=== PATIENT | female | born 2000 | race Two or more races ===

== ENCOUNTER 2019-04-23 03:37 | Emergency (ER) | payer SELFPAY ==
[~2019-04-23] VITALS: Ht 165.1 cm; Wt 105.7 kg
[2019-04-23 03:48] VITALS: BP 140/80
--- NOTE | 2019-04-23 03:48 | NUR ---
ED Nurse Note: PT WALKED IN TO ED FOR C/O LEFT SIDED HEADACHE X 7 DAYS. PT REPORTS BLURRY VISSION TO LEFT EYE.
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
--- NOTE | 2019-04-23 06:02 | NUR ---
ED Nurse Note: report given to robert elkins, endorsed care
--- NOTE | 2019-04-23 06:30 | NUR ---
ED Nurse Note: Received report from TRACEY Lambert patient able to ambulate and has made multiple trips to the bathroom, walks with a steady gait.
--- NOTE | 2019-04-23 07:05 | NUR ---
Eileen silver in ED - 04/23/19 at 0716 by [facility] HAND-OFF: Report given to TRACEY Chan.
--- NOTE | 2019-04-23 07:15 | NUR ---
HAND-OFF: Report given to TRACEY Palmer.
[2019-04-23 08:10] VITALS: BP 137/78
[2019-04-23 08:20] VITALS: BP 137/78
--- NOTE | 2019-04-23 08:20 | NUR ---
ER DISCHARGE NOTE: Patient is cleared to be discharged per ERMD, pt is aox4, on room air, with stable vital signs. pt was given dc instructions, pt was able to verbalize understanding, pt is able to ambulate with steady gait. pt took all belongings.
--- NOTE | 2019-04-23 08:23 | Emergency Room Report ---
Physical Exam Vital Signs Date Time Temp Pulse Resp B/P (MAP) Pulse Ox O2 Delivery O2 Flow Rate FiO2 04/23/19 03:42 98.2 82 16 139/84 (102) 99 Room Air Medical Decision Making Diagnostic Impression: Primary Impression: Head injury Additional Impression: Facial contusion ER Course No evidence of acute traumatic injury on CT scans of the head or face. She is well-appearing will be discharged home to follow-up with her PMD. Tylenol Motrin as needed for pain and swelling. Discussed reasons to return to the emergency department. She understands and agrees with this treatment plan. CT/MRI/US Diagnostic Results CT/MRI/US Diagnostic Results : Impression Preliminary Findings Only See Final Report For Complete Findings CT HEAD: No comparison study available at the time of dictation. No acute hemorrhage, mass effect or midline shift. CT FACIAL: Portion of the anterior facial bone excluded from the imaging field of view. Study is centered on the visualized upper cervical spine. No acute bony abnormality in the visualized portion of the facial bone. Repeat facial CT to include the anterior portion of the facial bones could be obtained as clinically indicated. Visualized portion of the nasal bone on the head CT appear grossly unremarkable. Probable small intraparotid lymph nodes, reactive. No retrobulbar abnormality. Radiologist: Jessica Topete M.D. Study ready at 07:54 and initial results transmitted at 08:04 Last Vital Signs Date Time Temp Pulse Resp B/P (MAP) Pulse Ox O2 Delivery O2 Flow Rate FiO2 04/23/19 03:48 98.2 89 16 140/80 99 Room Air Disposition: HOME, SELF-CARE Condition: Stable Referrals: Vincent Jones. [facility] Patient Instructions: Head Injury, Adult Additional Instructions: Follow-up with your primary doctor or 1 of the clinics listed here in your discharge paperwork. Use Tylenol and Motrin as needed for headaches. Return with any new or worsening symptoms. Ray Hogan MD Apr 23, 2019 08:23
--- NOTE | 2019-04-23 08:26 | Diagnostic Imaging Report ---
Indications: Left-sided headache for one week duration Technique: Spiral acquisitions obtained through the brain. Angled axial and coronal 5 x 5 mm slices were reconstructed. Total dose length product 1912 mGycm. CTDI vol(s) 84 mGy. Dose reduction achieved using automated exposure control Comparison: None. Findings: No acute intracranial hemorrhage or edema. No mass effect nor midline shift. Normal haney-white differentiation. Intact calvarium. Visualized orbits and sinuses are unremarkable. The mastoids are clear. The calvarium is intact Impression: Negative This agrees with the preliminary interpretation provided overnight by [facility]. The CT scanner at [facility] is accredited by the [employer] and the scans are performed using protocols designed to limit radiation exposure to as low as reasonably achievable to attain images of sufficient resolution adequate for diagnostic evaluation.
--- NOTE | 2019-04-23 08:33 | Diagnostic Imaging Report ---
. Indications: Reason For Exam: PAIN Technique: Spiral images obtained through the facial bones. No IV contrast utilized. Multiplanar reconstructions were generated.Total dose length product 578 mGycm. CTDIvol(s) 24 mGy. Dose reduction achieved using automated exposure control Comparison: none Findings: Exam is very limited, as the anterior face was cut off of the imaging volume in scanning was only down to the level of the soft palate. The visualized bones are unremarkable. The visualized sinuses are clear. Visualized portions of the mandible are unremarkable. Impression: Very limited exam. No gross acute bony trauma. Limited exam. No gross acute bony trauma in visualized portions Consider repeat exam if clinically indicated This agrees with the preliminary interpretation provided overnight by [facility]. The CT scanner at [facility] is accredited by the [employer] and the scans are performed using protocols designed to limit radiation exposure to as low as reasonably achievable to attain images of sufficient resolution adequate for diagnostic evaluation.
== END 2019-04-23 08:20 | disposition home or self-care (01) ==
LOC: EMR 06:40
DX: S00.83XA Contusion of other part of head, initial encounter (principal); I10 Essential (primary) hypertension; W50.0XXA Accidental hit or strike by another person, initial encounter; Y93.9 Activity, unspecified; Y92.9 Unspecified place or not applicable
CPT/HCPCS: 70450; 70486; 99284